=== PATIENT | male | born 1945 | race Two or more races ===

== ENCOUNTER 2019-07-15 10:12 | Outpatient (CLI) | payer OTHER | END 2019-07-15 10:17 | disposition home or self-care (01) | LOC: RX STUDY 10:12 | DX: K22.2 Esophageal obstruction (principal) ==

== ENCOUNTER 2022-09-13 08:31 | Outpatient (CLI) | payer OTHER | END 2022-09-13 08:43 | disposition home or self-care (01) | LOC: SONOGRAMA 08:31 | PROVIDERS: ATTEND Pathology Anatomic Pathology & Clinical Pathology | DX: D44.0 Neoplasm of uncertain behavior of thyroid gland (principal); E07.9 Disorder of thyroid, unspecified; E04.2 Nontoxic multinodular goiter ==